=== PATIENT | male | born 1985 | race Caucasian/White ===

== ENCOUNTER 2021-08-29 12:35 | Emergency (ER) | payer MEDICAID ==
[~2021-08-29 12:35] MED LIST: AMOXICILLIN500 M1 PO; NAPROSYN500 MG PO
[2021-08-29] MEDS ORDERED: AMOX TR-K CLV1 EAC4 PO (13:31)
== END 2021-08-29 13:42 | disposition home or self-care (01) ==
LOC: ER1 12:35
DX: M79.89 Other specified soft tissue disorders (principal); F17.200 Nicotine dependence, unspecified, uncomplicated
CPT/HCPCS: 73130; 99283

== ENCOUNTER → 2021-10-17 | Outpatient (CLI) | payer OTHER ==
[~2021-10-17] MED LIST changes: +AMOX TR-K CLV1 EAC4 PO
== END ==
LOC: KOH-I 12:23
DX: M25.561 Pain in right knee (principal)
CPT/HCPCS: 73562